=== PATIENT | male | born 1985 | race Caucasian/White ===

== ENCOUNTER 2019-11-14 03:52 | Emergency (ER) | payer BC ==
--- NOTE | 2019-11-14 04:06 | ED ---
Male Urogenital HPI <Ray Latham - Last Filed: 11/14/19 08:52> - General Source: patient, family, RN notes reviewed, old records reviewed Mode of arrival: ambulatory Limitations: no limitations - History of Present Illness Complaint: testicle pain, other (Right suprapubic abdominal pain) -: days(s) (6) Location: right inguinal region, abdomen Radiation: none Severity: moderate Severity scale (1-10): 7 Quality: aching, sharp Consistency: intermittent Improves with: none Worsens with: none Reports: denies other symptoms <Ray Gomez - Last Filed: 11/14/19 22:38> - General Chief complaint: Urogenital Stated complaint: abd/back pain Time Seen by Provider: 11/14/19 03:53 - History of Present Illness Initial comments: This is a 34-year-old male DF for evaluation patient has a for evaluation of right testicular pain right-sided abdominal pain right-sided pubic pain patient states that the pain episodically for 6 days mildly worse this morning does have bowel movements with urination without difficulty. No fevers no prior history of surgery. Denying any trauma. Mild nausea patient has not had any vomiting. No medical history takes no medications (Ray Gomez) - Related Data Previous Rx's Medication Instructions Recorded Ibuprofen [Motrin] 600 mg PO Q6HR PRN #20 tab 11/14/19 Allergies Allergy/AdvReac Type Severity Reaction Status Date / Time No Known Allergies Allergy Verified 11/14/19 04:04 Review of Systems ROS Other: All systems not noted in ROS Statement are negative. <Ray Latham - Last Filed: 11/14/19 08:52> ROS Other: All systems not noted in ROS Statement are negative. <Ray Gomez - Last Filed: 11/14/19 22:38> ROS Statement: Those systems with pertinent positive or pertinent negative responses have been documented in the HPI. Past Medical History Past Medical History: No Reported History History of Any Multi-Drug Resistant Organisms: None Reported Past Surgical History: No Surgical Hx Reported Past Psychological History: No Psychological Hx Reported Smoking Status: Current every day smoker Past Alcohol Use History: None Reported Past Drug Use History: None Reported <Ray Gomez - Last Filed: 11/14/19 22:38> General Exam Limitations: no limitations General appearance: alert, in no apparent distress Head exam: Present: atraumatic, normocephalic, normal inspection Eye exam: Present: normal appearance, PERRL, EOMI. Absent: scleral icterus, conjunctival injection, periorbital swelling ENT exam: Present: normal exam, mucous membranes moist Neck exam: Present: normal inspection. Absent: tenderness, meningismus, lymphadenopathy Respiratory exam: Present: normal lung sounds bilaterally. Absent: respiratory distress, wheezes, rales, rhonchi, stridor Cardiovascular Exam: Present: regular rate, normal rhythm, normal heart sounds. Absent: systolic murmur, diastolic murmur, rubs, gallop, clicks GI/Abdominal exam: Present: soft, normal bowel sounds. Absent: distended, tenderness, guarding, rebound, rigid exam: Present: testicular tenderness, scrotal swelling (minimal) Extremities exam: Present: normal inspection, full ROM, normal capillary refill. Absent: tenderness, pedal edema, joint swelling, calf tenderness Back exam: Present: normal inspection Neurological exam: Present: alert, oriented X3, CN II-XII intact Psychiatric exam: Present: normal affect, normal mood Skin exam: Present: warm, dry, intact, normal color. Absent: rash <Ray Gomez - Last Filed: 11/14/19 22:38> Course <Ray Gomez - Last Filed: 11/14/19 22:38> Vital Signs 11/14/19 11/14/19 11/14/19 03:59 05:06 06:00 Temperature 98 F Pulse Rate 98 Respiratory 20 Rate Blood Pressure 153/84 138/95 138/95 O2 Sat by Pulse 97 98 97 Oximetry 11/14/19 11/14/19 07:00 09:04 Temperature 97.8 F Pulse Rate 71 Respiratory 18 Rate Blood Pressure 138/95 121/84 O2 Sat by Pulse 97 97 Oximetry - Reevaluation(s) Reevaluation #1: 11/14/19 05:51 Medical record is reviewed (Ray Gomez) Reevaluation #2: 11/14/19 05:50 Patient has pain tolerate, pending ultrasound of scrotum (Ray Gomez) Medical Decision Making - Lab Data Result diagrams: 11/14/19 04:40 11/14/19 04:40 <Ray Latham - Last Filed: 11/14/19 08:52> - Lab Data Result diagrams: 11/14/19 04:40 11/14/19 04:40 - Radiology Data Radiology results: report reviewed (CT abdomen and pelvis is negative for acute disease, US scrotum no torsion), image reviewed <Ray Gomez B - Last Filed: 11/14/19 22:38> - Medical Decision Making Patient was signed out to me by Dr. Gomez. I will back into reevaluate the patient after he had his CAT scan and ultrasound which were both negative. Patient states at this time he has no symptoms at all. Patient states that felt like his back was spasming this morning and that is why he came in. Patient states it seem like different positions make the pain worse but currently is unable to reproduce. Patient states he did have some pain in his posterior thigh earlier as well. Patient states that this time he feels good and he will follow-up with his primary medical care doctor. (Ray Latham) - Lab Data Lab Results 11/14/19 11/14/19 11/14/19 Range/Units 04:40 04:40 04:50 WBC 7.0 (3.8-10.6) k/uL RBC 5.48 (4.30-5.90) m/uL Hgb 16.8 (13.0-17.5) gm/dL Hct 47.4 (39.0-53.0) % MCV 86.4 (80.0-100.0) fL MCH 30.7 (25.0-35.0) pg MCHC 35.5 (31.0-37.0) g/dL RDW 11.9 (11.5-15.5) % Plt Count 263 (150-450) k/uL Neutrophils % 66 % Lymphocytes % 23 % Monocytes % 7 % Eosinophils % 2 % Basophils % 0 % Neutrophils # 4.6 (1.3-7.7) k/uL Lymphocytes # 1.6 (1.0-4.8) k/uL Monocytes # 0.5 (0-1.0) k/uL Eosinophils # 0.1 (0-0.7) k/uL Basophils # 0.0 (0-0.2) k/uL Sodium 137 (137-145) mmol/L Potassium 3.5 (3.5-5.1) mmol/L Chloride 99 (98-107) mmol/L Carbon Dioxide 28 (22-30) mmol/L Anion Gap 10 mmol/L BUN 14 (9-20) mg/dL Creatinine 0.84 (0.66-1.25) mg/dL Est GFR (CKD-EPI)AfAm >90 (>60 ml/min/1.73 sqM) Est GFR (CKD-EPI)NonAf >90 (>60 ml/min/1.73 sqM) Glucose 113 H (74-99) mg/dL Plasma Lactic Acid Art 1.0 (0.7-2.0) mmol/L Calcium 9.8 (8.4-10.2) mg/dL Total Bilirubin 1.1 (0.2-1.3) mg/dL AST 32 (17-59) U/L ALT 27 (4-49) U/L Alkaline Phosphatase 81 (38-126) U/L Total Protein 8.3 H (6.3-8.2) g/dL Albumin 5.1 H (3.5-5.0) g/dL Amylase 60 (30-110) U/L Lipase 63 (23-300) U/L Urine Color Urine Appearance (Clear) Urine pH (5.0-8.0) Ur Specific [place] (1.001-1.035) Urine Protein (Negative) Urine Glucose (UA) (Negative) Urine Ketones (Negative) Urine Blood (Negative) Urine Nitrite (Negative) Urine Bilirubin (Negative) Urine Urobilinogen (<2.0) mg/dL Ur Leukocyte Esterase (Negative) 11/14/19 Range/Units 04:52 WBC (3.8-10.6) k/uL RBC (4.30-5.90) m/uL Hgb (13.0-17.5) gm/dL Hct (39.0-53.0) % MCV (80.0-100.0) fL MCH (25.0-35.0) pg MCHC (31.0-37.0) g/dL RDW (11.5-15.5) % Plt Count (150-450) k/uL Neutrophils % % Lymphocytes % % Monocytes % % Eosinophils % % Basophils % % Neutrophils # (1.3-7.7) k/uL Lymphocytes # (1.0-4.8) k/uL Monocytes # (0-1.0) k/uL Eosinophils # (0-0.7) k/uL Basophils # (0-0.2) k/uL Sodium (137-145) mmol/L Potassium (3.5-5.1) mmol/L Chloride (98-107) mmol/L Carbon Dioxide (22-30) mmol/L Anion Gap mmol/L BUN (9-20) mg/dL Creatinine (0.66-1.25) mg/dL Est GFR (CKD-EPI)AfAm (>60 ml/min/1.73 sqM) Est GFR (CKD-EPI)NonAf (>60 ml/min/1.73 sqM) Glucose (74-99) mg/dL Plasma Lactic Acid Art (0.7-2.0) mmol/L Calcium (8.4-10.2) mg/dL Total Bilirubin (0.2-1.3) mg/dL AST (17-59) U/L ALT (4-49) U/L Alkaline Phosphatase (38-126) U/L Total Protein (6.3-8.2) g/dL Albumin (3.5-5.0) g/dL Amylase (30-110) U/L Lipase (23-300) U/L Urine Color Light Yellow Urine Appearance Clear (Clear) Urine pH 6.0 (5.0-8.0) Ur Specific [place] 1.004 (1.001-1.035) Urine Protein Negative (Negative) Urine Glucose (UA) Negative (Negative) Urine Ketones Negative (Negative) Urine Blood Negative (Negative) Urine Nitrite Negative (Negative) Urine Bilirubin Negative (Negative) Urine Urobilinogen <2.0 (<2.0) mg/dL Ur Leukocyte Esterase Negative (Negative) Disposition Is patient prescribed a controlled substance at d/c from ED?: No Time of Disposition: 08:49 <Ray Latham - Last Filed: 11/14/19 08:52> <Ray Gomez - Last Filed: 11/14/19 22:38> Clinical Impression: Lower back pain Disposition: HOME SELF-CARE Condition: Good Instructions (If sedation given, give patient instructions): Acute Low Back Pain (ED) Prescriptions: Ibuprofen [Motrin] 600 mg PO Q6HR PRN #20 tab PRN Reason: For pain Referrals: Rosendo Yip MD [Primary Care Provider] - 1-2 days
[2019-11-14] MEDS ORDERED: SODIUM CHLORIDE 0.9% 1,000 ML IV STA (04:29)
[2019-11-14 04:56] LABS: Basophils % (A) 0 %; Eosinophils # (A) 0.1 k/uL (0-0.7); Eosinophils % (A) 2 %; HCT 47.4 % (39.0-53.0); HGB 16.8 gm/dL (13.0-17.5); Lymphocytes # (A) 1.6 k/uL (1.0-4.8); Lymphocytes % (A) 23 %; MCH 30.7 pg (25.0-35.0); MCHC 35.5 g/dL (31.0-37.0); MCV 86.4 fL (80.0-100.0); Mean Platelet Volume 6.5; Monocytes # (A) 0.5 k/uL (0-1.0); Monocytes % (A) 7 %; Neutrophils # (A) 4.6 k/uL (1.3-7.7); Neutrophils % (A) 66 %; Platelet Count 263 k/uL (150-450); RBC 5.48 m/uL (4.30-5.90); RDW 11.9 % (11.5-15.5)
[2019-11-14 05:01] LABS: AST 32 U/L (17-59); African American GFR (CKD) >90 (>60 ml/min/1.73 sqM); Albumin 5.1 g/dL (3.5-5.0); Alkaline Phosphatase 81 U/L (38-126); Amylase 60 U/L (30-110); Anion Gap 10 mmol/L; Blood Urea Nitrogen 14 mg/dL (9-20); Calcium 9.8 mg/dL (8.4-10.2); Carbon Dioxide 28 mmol/L (22-30); Chloride 99 mmol/L (98-107); Glucose 113 mg/dL (74-99); Non-African American GFR(CKD) >90 (>60 ml/min/1.73 sqM); Potassium 3.5 mmol/L (3.5-5.1); Sodium 137 mmol/L (137-145); Total Bilirubin 1.1 mg/dL (0.2-1.3); Total Protein 8.3 g/dL (6.3-8.2)
[2019-11-14 05:03] LABS: Appearance,Urine Clear (Clear); Bilirubin,Urine Negative (Negative); Blood,Urine Negative (Negative); Color,Urine Light Yellow; Glucose,Urine (UA) Negative (Negative); Ketones,Urine Negative (Negative); Leukocyte Esterase,Urine Negative (Negative); Nitrite,Urine Negative (Negative); Protein,Urine Negative (Negative); Specific Gravity,Urine 1.004 (1.001-1.035); Urobilinogen,Urine <2.0 mg/dL (<2.0)
[2019-11-14 05:03] LABS: ALT 27 U/L (4-49)
--- NOTE | 2019-11-14 05:24 | CT ---
EXAMINATION TYPE: CT abdomen pelvis wo con DATE OF EXAM: 11/14/2019 COMPARISON: None HISTORY: RLQ pain. CT DLP: 804.7 mGycm Automated exposure control for dose reduction was used. Multiple axial sections were obtained from the diaphragm to the floor the pelvis with no contrast. Lung bases are clear. There is no pleural effusion. Heart size is normal. There is no pericardial eff usion. Liver spleen pancreas stomach gallbladder appear normal. Bile ducts are not dilated. There is no adrenal mass. Kidneys have normal size and contour. There is no hydronephrosis. Ureters a re not dilated. There is no retroperitoneal adenopathy. Bladder distends smoothly. There is no inguin al hernia. There is no free fluid in the pelvis. Appendix appears normal. There is no mesenteric timbo a. There is no ascites or free air. There is no evidence of bowel obstruction. Lumbar vertebra have normal alignment. Posterior elements are intact. The bony pelvis is intact. IMPRESSION: Normal appendix. No renal stone or obstruction. No sign of acute abdomen and pelvis.
[2019-11-14] MEDS ORDERED: KETOROLAC 30 MG/ML 1 ML VIAL IVP STA (06:02)
--- NOTE | 2019-11-14 07:42 | US ---
EXAMINATION TYPE: US scrotum with doppler. Grayscale and color Doppler Duplex imaging performed of t he scrotum. DATE OF EXAM: 11/14/2019 COMPARISON: NONE CLINICAL HISTORY: Right lower quadrant pain. EXAM MEASUREMENTS: TESTICLES: Right Testicle: 4.3 x 2.0 x 2.6 cm Left Testicle: 3.9 x 2.2 x 2.5 cm EPIDIDYMIS HEAD: Right Epididymis: 1.0 cm small cyst measuring 2mm Left Epididymis: 1.0 cm Doppler performed to assess for testicular vascularity; good bilateral color flow and waveforms are s een. There is no evidence of testicular torsion. Presence of hydroceles: no Presence of varicoceles: no IMPRESSION: No sonographic evidence of testicular torsion at the time the examination nor demarcated. Incidentally noted 2 mm benign-appearing right epididymal cyst.
[2019-11-14 09:06] VITALS: BP 121/84; PULSE 71; RESP 18; TEMP 97.8
== END 2019-11-14 09:06 | disposition home or self-care (01) ==
LOC: EC 03:52
DX: M54.5 Low back pain (principal); R10.31 Right lower quadrant pain; F17.200 Nicotine dependence, unspecified, uncomplicated
CPT/HCPCS: 36415; 80053; 82150; 83605; 83690; 85025; 81003; 93975; 76870; 74176; 99284; 96374; 96361; J1885

== ENCOUNTER 2019-11-17 11:48 | Emergency (ER) | payer BC ==
[2019-11-17] MEDS ORDERED: KETOROLAC 30 MG/ML 1 ML VIAL IM STA (12:21)
--- NOTE | 2019-11-17 12:33 | ED ---
General Adult HPI - General Chief complaint: Urogenital Stated complaint: revisit/Groin pain Time Seen by Provider: 11/17/19 12:05 Source: patient, RN notes reviewed Mode of arrival: ambulatory Limitations: no limitations - History of Present Illness Initial comments: 34-year-old male without any significant past medical history presents to the emergency department for a chief complaint of right testicular pain. Patient states he has had a right testicular pain intermittently for about the past week. States he was seen here a few days ago and had a CAT scan and an ultrasound of the scrotum done. States they did not find anything that could be causing his pain. Patient states that he went to take a bath about 30 minutes ago and when he got out he had sudden right testicular pain radiating to the right abdomen. States that he feels his groin looks a little swollen. He denies dysuria.Patient has no other complaints at this time including shortness of breath, chest pain, nausea or vomiting, headache, or visual changes. - Related Data Previous Rx's Medication Instructions Recorded Ibuprofen [Motrin] 600 mg PO Q6HR PRN #20 tab 11/14/19 Allergies Allergy/AdvReac Type Severity Reaction Status Date / Time No Known Allergies Allergy Verified 11/17/19 13:19 Review of Systems ROS Statement: Those systems with pertinent positive or pertinent negative responses have been documented in the HPI. ROS Other: All systems not noted in ROS Statement are negative. Past Medical History Past Medical History: No Reported History History of Any Multi-Drug Resistant Organisms: None Reported Past Surgical History: No Surgical Hx Reported Past Psychological History: No Psychological Hx Reported Smoking Status: Current every day smoker Past Alcohol Use History: None Reported Past Drug Use History: None Reported General Exam Limitations: no limitations General appearance: alert, in no apparent distress Head exam: Present: atraumatic, normocephalic, normal inspection Eye exam: Present: normal appearance, PERRL, EOMI. Absent: scleral icterus, conjunctival injection, periorbital swelling ENT exam: Present: normal exam, mucous membranes moist Neck exam: Present: normal inspection, full ROM. Absent: tenderness, meningismus, lymphadenopathy Respiratory exam: Present: normal lung sounds bilaterally. Absent: respiratory distress, wheezes, rales, rhonchi, stridor Cardiovascular Exam: Present: regular rate, normal rhythm, normal heart sounds. Absent: systolic murmur, diastolic murmur, rubs, gallop, clicks GI/Abdominal exam: Present: soft, tenderness (minmal RLQ tenderness), normal bowel sounds. Absent: distended, guarding, rebound, rigid exam: Present: other (minimal right inguinal edema without evidence for hernia. Ana JIMENEZ present for exam.). Absent: testicular tenderness, urethral discharge, scrotal swelling, vertical testicular lie, circumcision Course Vital Signs 11/17/19 11:52 Temperature 97.7 F Pulse Rate 94 Respiratory 18 Rate Blood Pressure 147/90 O2 Sat by Pulse 99 Oximetry Medical Decision Making - Medical Decision Making Ultrasound of the scrotum shows a small right hydrocele. Limited scanning of the right groin shows no abnormality. CT results from 11/14/2019 was reviewed and showed a normal appendix. Scrotal ultrasound showed no sonographic evidence of torsion. There was an incidentally noted 2 mm benign-appearing right epididymal cyst. Patient was reevaluated and had significant improvement in pain. Patient did have 2+ ketones in his urine, agrees to orally rehydrate. Is able to drink plenty of fluids, no nausea vomiting. I did reevaluate patient and he is sitting much better. He will follow up with urology for these findings. He will also follow up with his primary care. He will return for any worsening symptoms. - Lab Data Lab Results 11/17/19 Range/Units 12:20 Urine Color Yellow Urine Appearance Clear (Clear) Urine pH 5.5 (5.0-8.0) Ur Specific [place] 1.008 (1.001-1.035) Urine Protein Negative (Negative) Urine Glucose (UA) Negative (Negative) Urine Ketones 2+ H (Negative) Urine Blood Negative (Negative) Urine Nitrite Negative (Negative) Urine Bilirubin Negative (Negative) Urine Urobilinogen <2.0 (<2.0) mg/dL Ur Leukocyte Esterase Negative (Negative) Disposition Clinical Impression: Hydrocele, right, Epididymal cyst Disposition: HOME SELF-CARE Condition: Good Instructions (If sedation given, give patient instructions): Scrotal Pain (ED) Additional Instructions: Please take Motrin for pain. If pain is severe take Tylenol 3. Do not drive or operate machinery while taking this. Follow up with urology by calling for an appointment in the next day. Return to the emergency department for any worsening symptoms. Is patient prescribed a controlled substance at d/c from ED?: No Referrals: Rosendo Yip MD [Primary Care Provider] - 1-2 days Yakov Talamantes MD [STAFF PHYSICIAN] - 1-2 days Time of Disposition: 14:06
[2019-11-17 12:45] LABS: Appearance,Urine Clear (Clear); Bilirubin,Urine Negative (Negative); Blood,Urine Negative (Negative); Color,Urine Yellow; Glucose,Urine (UA) Negative (Negative); Ketones,Urine 2+ (Negative); Leukocyte Esterase,Urine Negative (Negative); Nitrite,Urine Negative (Negative); PH, Urine 5.5 (5.0-8.0); Protein,Urine Negative (Negative); Specific Gravity,Urine 1.008 (1.001-1.035); Urobilinogen,Urine <2.0 mg/dL (<2.0)
--- NOTE | 2019-11-17 13:41 | US ---
EXAMINATION TYPE: US scrotum with doppler. Grayscale and color Doppler Duplex imaging performed of t he scrotum. DATE OF EXAM: 11/17/2019 COMPARISON: Prior scrotal ultrasound 11/14/2019 CLINICAL HISTORY: pain R testicle. Right side pain. Patient was in [facility] x few days ago and had ultraso und of scrotum. EXAM MEASUREMENTS: TESTICLES: Right Testicle: 4.1 x 2.7 x 2.4 cm Left Testicle: 4.0 x 2.9 x 2.2 cm EPIDIDYMIS HEAD: Right Epididymis: 1.2 x 1.0 x 0.8 cm Left Epididymis: 0.9 x 1.1 x 1.0 cm Doppler performed to assess for testicular vascularity; bilateral color flow and waveforms are seen. Presence of hydroceles: Small right Presence of varicoceles: No Right epididymal head cystic appearing lesion = 0.2 x 0.2 x 0.2 cm Testicular echotexture is homogenous and symmetric. IMPRESSION: Small right hydrocele.
--- NOTE | 2019-11-17 13:43 | US ---
EXAMINATION TYPE: US groin RT DATE OF EXAM: 11/17/2019 COMPARISON: CT 11/24/2019 CLINICAL HISTORY: pain. Right groin pain radiating to scrotum. Right groin scanned. No prominent abnormality seen. No prominent hernia seen, valsalva performed. IMPRESSION: Limited scanning of the right groin shows no abnormality, no evident hernia
[2019-11-17] MEDS ORDERED: ACET/COD 300 MG/30 MG STARTER PACK 6 TAB BTL PO STA (14:07)
[2019-11-17 14:17] VITALS: BP 130/92; PULSE 72; RESP 16; TEMP 98.2
[2019-11-18 14:18] LABS: C. trachomatis,PCR Negative (Neg,Equiv); Chlamydia trachomatis Source Urine; N. gonorrhoeae,PCR Negative (Neg,Equiv); Neisseria Source Urine
== END 2019-11-17 14:17 | disposition home or self-care (01) ==
LOC: EC 11:48
DX: N50.3 Cyst of epididymis (principal); N43.3 Hydrocele, unspecified; F17.200 Nicotine dependence, unspecified, uncomplicated
CPT/HCPCS: 81003; 87491; 87591; 93975; 76870; 76882; 96372; 99284; J1885

== ENCOUNTER 2019-11-20 19:29 | Emergency (ER) | payer BC ==
[2019-11-20 19:35] VITALS: RESP 18; TEMP 98.7
--- NOTE | 2019-11-20 20:15 | ED ---
Chest Pain HPI - General Chief Complaint: Chest Pain Stated Complaint: Dizziness Time Seen by Provider: 11/20/19 19:50 Source: patient, RN notes reviewed Mode of arrival: ambulatory Limitations: no limitations - History of Present Illness Initial Comments: This is a 34-year-old male who presents with complaints of chest pain. States he has some shortness of breath with some vertigo he states the chest pain on the left side somewhat sharp and dull gets some chills he states heart rate would going from 80-160 he also states he was here earlier in the week diagnosed with a hydrocele on the right groin. Just states he had a left lower molar was inflamed. Antibiotics for recently he states is loose now he states the tip of his tongue is numb he states he is anxious that something bad might be having. No other complaints no fevers or sweats no overt cough he is a smoker. No other modifying factors at this time MD Complaint: chest pain, other - Related Data Previous Rx's Medication Instructions Recorded Ibuprofen [Motrin] 600 mg PO Q6HR PRN #20 tab 11/14/19 Magnesium 200 mg PO DAILY #7 tablet 11/20/19 Potassium Chloride ER [K-Dur 20] 20 meq PO DAILY #7 tab 11/20/19 Allergies Allergy/AdvReac Type Severity Reaction Status Date / Time No Known Allergies Allergy Verified 11/20/19 21:01 Review of Systems ROS Statement: Those systems with pertinent positive or pertinent negative responses have been documented in the HPI. ROS Other: All systems not noted in ROS Statement are negative. EKG Findings - EKG Results: EKG: interpreted by LORI CUNNINGHAM, sinus rhythm, normal axis, normal QRS, normal ST/T, no acute changes ([place] [id number] QRS duration 92 QT since QTC 446/448 some artifact was present.) Past Medical History Past Medical History: No Reported History History of Any Multi-Drug Resistant Organisms: None Reported Past Surgical History: No Surgical Hx Reported Past Psychological History: No Psychological Hx Reported Smoking Status: Current every day smoker Past Alcohol Use History: None Reported Past Drug Use History: None Reported General Exam - General Exam Comments Initial Comments: This is a well-developed well-nourished awake alert oriented 3 male Limitations: no limitations General appearance: alert, anxious Head exam: Present: atraumatic, normocephalic, normal inspection Eye exam: Present: normal appearance, PERRL, EOMI. Absent: scleral icterus, conjunctival injection, periorbital swelling ENT exam: Present: normal exam, mucous membranes moist Neck exam: Present: normal inspection, full ROM. Absent: tenderness, meningismus, lymphadenopathy Respiratory exam: Present: normal lung sounds bilaterally, chest wall tenderness (Reproducible tenderness palpation). Absent: respiratory distress, wheezes, rales, rhonchi, stridor Cardiovascular Exam: Present: regular rate, normal rhythm, normal heart sounds. Absent: systolic murmur, diastolic murmur, rubs, gallop, clicks GI/Abdominal exam: Present: soft, normal bowel sounds. Absent: distended, tenderness, guarding, rebound, rigid Extremities exam: Present: normal inspection, full ROM, normal capillary refill. Absent: tenderness, pedal edema, joint swelling, calf tenderness Back exam: Present: normal inspection Neurological exam: Present: alert, oriented X3, CN II-XII intact Psychiatric exam: Present: normal affect, normal mood Skin exam: Present: warm, dry, intact, normal color. Absent: rash Course Vital Signs 11/20/19 11/20/19 19:32 21:19 Temperature 98.7 F Pulse Rate 81 52 L Respiratory 18 18 Rate Blood Pressure 152/93 125/75 O2 Sat by Pulse 100 98 Oximetry Chest Pain MDM - MDM I did review the imaging and reports no acute findings. The patient states she's been having some episodes of what he believes to be fast heart beat. I did recommend he follow-up with his doctor for Holter monitor which she is in agreement with. Discussion the patient's potassium and magnesium are at the lower normally did recommend supplementation he will get prescriptions last for about a week. He is a follow-up with Dr. Valdez. Did also discuss smoking cessation he did recently just stopped caffeine intake. This may be part of the symptoms Disposition Clinical Impression: Chest wall syndrome, Palpitations Disposition: HOME SELF-CARE Condition: Good Instructions (If sedation given, give patient instructions): Chest Wall Pain (ED), Heart Palpitations (ED) Prescriptions: Potassium Chloride ER [K-Dur 20] 20 meq PO DAILY #7 tab Magnesium 200 mg PO DAILY #7 tablet Is patient prescribed a controlled substance at d/c from ED?: No Referrals: Rosendo Yip MD [Primary Care Provider] - 1-2 days
[2019-11-20 20:36] LABS: Basophils % (A) 1 %; Eosinophils # (A) 0.2 k/uL (0-0.7); Eosinophils % (A) 2 %; HCT 46.4 % (39.0-53.0); HGB 15.9 gm/dL (13.0-17.5); Lymphocytes # (A) 2.4 k/uL (1.0-4.8); Lymphocytes % (A) 35 %; MCH 30.2 pg (25.0-35.0); MCHC 34.3 g/dL (31.0-37.0); Mean Platelet Volume 7.4; Monocytes # (A) 0.4 k/uL (0-1.0); Monocytes % (A) 6 %; Neutrophils # (A) 3.7 k/uL (1.3-7.7); Neutrophils % (A) 55 %; Platelet Count 269 k/uL (150-450); RBC 5.27 m/uL (4.30-5.90); RDW 12.4 % (11.5-15.5); WBC 6.8 k/uL (3.8-10.6)
[2019-11-20 20:44] LABS: ALT 19 U/L (4-49); AST 30 U/L (17-59); African American GFR (CKD) >90 (>60 ml/min/1.73 sqM); Albumin 4.7 g/dL (3.5-5.0); Alkaline Phosphatase 59 U/L (38-126); Anion Gap 10 mmol/L; Blood Urea Nitrogen 16 mg/dL (9-20); Carbon Dioxide 27 mmol/L (22-30); Chloride 103 mmol/L (98-107); Creatine Kinase 317 U/L (55-170); Glucose 98 mg/dL (74-99); INR 1.1 (<1.2); Magnesium 1.9 mg/dL (1.6-2.3); Non-African American GFR(CKD) >90 (>60 ml/min/1.73 sqM); Partial Thromboplastin Time 24.5 sec (22.0-30.0); Potassium 3.7 mmol/L (3.5-5.1); Prothrombin Time 10.9 sec (9.0-12.0); Sodium 140 mmol/L (137-145); Total Bilirubin 0.8 mg/dL (0.2-1.3); Total Protein 7.5 g/dL (6.3-8.2)
--- NOTE | 2019-11-20 20:44 | XR ---
EXAMINATION TYPE: XR chest 2V DATE OF EXAM: 11/20/2019 COMPARISON: NONE HISTORY: Chest pain TECHNIQUE: 2 views FINDINGS: Heart and mediastinum are normal. Lungs are clear. Diaphragm is normal. Bony thorax appears normal. IMPRESSION: Normal chest. Normal heart.
[2019-11-20 21:20] VITALS: BP 125/75; PULSE 52
== END 2019-11-20 21:54 | disposition home or self-care (01) ==
LOC: EC 19:29
DX: R07.1 Chest pain on breathing (principal); R00.2 Palpitations; R06.02 Shortness of breath; R42 Dizziness and giddiness; R68.83 Chills (without fever); F17.200 Nicotine dependence, unspecified, uncomplicated
CPT/HCPCS: 36415; 71046; 80053; 82550; 83735; 84484; 85025; 85610; 85730; 93005; 99285